=== PATIENT | female | born 1990 | race African-American/Black ===

== ENCOUNTER 2017-07-08 22:54 | Emergency (ER) | payer MEDICAID, OTHER ==
[~2017-07-08] VITALS: Ht 167.6 cm; Wt 73.2 kg
[2017-07-09 01:15] LABS: HEMATOCRIT. 26.8 % (36.0-48.0); HEMOGLOBIN. 7.9 g/dL (12.0-16.0); MEAN CORPUSCULAR HEMOGLOBIN 19.3 pg (28.0-32.0); MEAN CORPUSCULAR VOLUME 65.8 fL (81.0-99.0); MEAN PLATELET VOLUME 7.6 fl (7.4-10.4); PLATELET 507 x1000/uL (130-400); RED BLOOD CELL COUNT 4.07 mill/uL (4.2-5.4); RED CELL DISTRIBUTION WIDTH 19.1 % (11.6-14.6)
[2017-07-09 01:42] LABS: CARBON DIOXIDE 25 mEq/L (21-32); CHLORIDE 107 mEq/L (98-107); TROPONIN I < 0.02 ng/mL (0.00-0.04)
[2017-07-09 01:55] LABS: PLATELET ESTIMATE INCREASED
[2017-07-09 03:10] VITALS: BP 127/87
== END 2017-07-09 04:38 | disposition home or self-care (01) ==
LOC: ER 22:54
DX: R06.02 Shortness of breath (principal); R55 Syncope and collapse; D64.9 Anemia, unspecified; R20.2 Paresthesia of skin; R53.83 Other fatigue
CPT/HCPCS: 36415; 71010; 80053; 81025; 84484; 85025; 85379; 93005; 99285; Z7610

== ENCOUNTER 2017-08-10 21:37 | Emergency (ER) | payer MEDICAID ==
[~2017-08-10] VITALS: Ht 165.1 cm; Wt 75.0 kg
[2017-08-11] MEDS ORDERED: SODIUM CHLORIDE 0.9% 1,000 ML IV ONE (02:27)
[2017-08-11] MEDS ORDERED: MORPHINE SULFATE 4 MG/ML CPJ (NOT FOR IM USE) IV ONE (02:30)
[2017-08-11] MEDS ORDERED: ONDANSETRON HCL 4MG/2ML VIAL IV ONE (02:30)
[2017-08-11 02:52] LABS: BASOPHILS % 0.5 % (0.0-2.0); HEMATOCRIT. 25.7 % (36.0-48.0); HEMOGLOBIN. 7.8 g/dL (12.0-16.0); MEAN CORPUSCULAR HEMOGLOBIN 18.8 pg (28.0-32.0); MEAN CORPUSCULAR VOLUME 62.2 fL (81.0-99.0); MEAN PLATELET VOLUME 7.5 fl (7.4-10.4); NEUTROPHILS % 82.5 % (40.0-76.0); PLATELET 488 x1000/uL (130-400); RED BLOOD CELL COUNT 4.13 mill/uL (4.2-5.4); RED CELL DISTRIBUTION WIDTH 21.4 % (11.6-14.6)
[2017-08-11 03:03] LABS: CARBON DIOXIDE 27 mEq/L (21-32); CHLORIDE 103 mEq/L (98-107)
[2017-08-11 05:56] VITALS: BP 127/69
== END 2017-08-11 06:04 | disposition home or self-care (01) ==
LOC: ER 21:37
DX: D25.9 Leiomyoma of uterus, unspecified (principal); D64.9 Anemia, unspecified
CPT/HCPCS: 36415; 76856; 80053; 83690; 85025; 86850; 86900; 86901; 96361; 96374; 96375; 99285; J2270; J2405; J7030; Z7610